=== PATIENT | female | born 1960 | race African-American/Black ===

== ENCOUNTER 2020-08-12 14:43 | Inpatient (IN) | payer MEDICAID ==
[~2020-08-12] VITALS: Ht 167.6 cm; Wt 63.5 kg
--- NOTE | 2020-08-12 15:00 | NUR ---
madi, from care facility, altered and poor oral intake. Patient a/ox1, confused. Breathing even and unlabored, no sob noted, Needs attended, kept comfortable.
[2020-08-12] MEDS ORDERED: CLON0.1T PO (15:13)
[2020-08-12] MEDS ORDERED: METF-440 PO (15:13)
[2020-08-12] MEDS ORDERED: ATOR10TA PO (15:13)
[2020-08-12] MEDS ORDERED: MELA3TAB41 PO (15:13)
[2020-08-12] MEDS ORDERED: CHOL200010 PO (15:13)
[2020-08-12] MEDS ORDERED: ASCO-352 PO (15:13)
[2020-08-12] MEDS ORDERED: OLAN10TA3 PO (15:13)
[2020-08-12] MEDS ORDERED: ASPI-1420 PO (15:13)
[2020-08-12] MEDS ORDERED: PRED10TA PO (15:13)
[2020-08-12] MEDS ORDERED: CARV3.122 PO (15:13)
[2020-08-12] MEDS ORDERED: BENZ1TAB7 PO (15:13)
[2020-08-12] MEDS ORDERED: FLUO20CA42 PO (15:13)
--- NOTE | 2020-08-12 16:08 | NUR ---
patient taken to radiology for ct.
[2020-08-12 16:26] LABS: BASOPHILS % (AUTO) 0.3 % (0.0-2.0); EOSINOPHILS % (AUTO) 0.2 % (0.0-6.0); HEMATOCRIT 41 % (33-45); HEMOGLOBIN 12.5 g/dL (11.5-14.8); LYMPHOCYTES # (AUTO) 1.5 /CMM (0.8-4.8); LYMPHOCYTES % (AUTO) 18.9 % (20.0-44.0); MEAN CORPUSCULAR HGB CONC 31 g/dl (31.0-36.0); MEAN CORPUSCULAR VOLUME 88 fL (82-100); MONOCYTES # (AUTO) 0.5 /CMM (0.1-1.30); NEUTROPHILS % (AUTO) 74.6 % (43.0-81.0); PLATELET COUNT (AUTO) 177 /CMM (150-450); RED BLOOD CELL COUNT(AUTO) 4.64 MIL/uL (4.0-5.2); WHITE BLOOD COUNT (AUTO) 8.1 K/uL (4.3-11.0)
[2020-08-12 16:59] LABS: BILIRUBIN,URINE NEGATIVE (NEGATIVE); BLOOD, URINE NEGATIVE Ery/uL (NEGATIVE); COLOR,URINE YELLOW (YELLOW); LEUKOCYTE ESTERASE ,URINE SMALL (NEGATIVE); NITRITE, URINE NEGATIVE (NEGATIVE); PROTEIN,URINE 100 mg/dl (NEGATIVE); UGLUCOSE NEGATIVE (NEGATIVE); UROBILINOGEN,URINE 0.2 EU/dL (0.2)
[2020-08-12 17:05] LABS: BACTERIA,URINE Few /HPF (None Seen); RBC,URINE 0-2 /HPF (0-2); SQUAMOUS EPITHELIAL CELL,UR 0-2 /HPF (None Seen); WBC,URINE 51-80 /HPF (0-3)
[2020-08-12 17:13] LABS: ALANINE AMINOTRANSFERASE 25 U/L (12-78); ALBUMIN 3.2 g/dL (3.4-5.0); ALKALINE PHOSPHATASE 69 U/L (46-116); ASPARTATE AMINOTRANSFERASE 21 U/L (15-37); BILIRUBIN,DIRECT 0.1 mg/dL (0.0-0.2); BILIRUBIN,TOTAL 0.5 mg/dL (0.2-1.0); CALCIUM, SERUM 10.8 mg/dL (8.5-10.1); CARBON DIOXIDE 28 mmol/L (21-32); CHLORIDE 107 mmol/L (98-107); CREATININE 1.1 mg/dL (0.6-1.3); GLUCOSE 99 mg/dL (74-106); POTASSIUM 4.4 mmol/L (3.5-5.1); SODIUM SERUM 146 mmol/L (136-145); TOTAL PROTEIN, SERUM 7.7 g/dL (6.4-8.2); UREA NITROGEN, BLOOD 25 mg/dL (7-18)
[2020-08-12] MEDS ORDERED: MEROPENEM 1,000 MG in IV NS 0.9% 100 ML IV ONE (18:00)
[2020-08-12] MEDS ORDERED: IV NS 0.9% 1,000 ML IV ONE (18:00)
--- NOTE | 2020-08-12 19:43 | NUR ---
TOOK OVER PT CARE. PT AAOX1. PLACED IN BED 10 ON MONITOR AND PULSE OX. VSS. WATCHING TV. PROVIDED WITH BLANKETS.
--- NOTE | 2020-08-12 20:05 | NUR ---
IMELDAID SWABBED, SENT TO LAB.
--- NOTE | 2020-08-12 20:20 | NUR ---
SPOKE TO MD MARY REGARDING PT BEING HYPERTENSIVE, AWAITING ORDERS.
[2020-08-12] MEDS ORDERED: hydrALAZINE HCL IV 20 MG VIAL IV ONE (20:30)
--- NOTE | 2020-08-12 20:33 | NUR ---
PT PROVIDED WITH FOOD.
--- NOTE | 2020-08-12 21:33 | NUR ---
LAB CALLED REGARDING POSITIVE COVID RESULT.
--- NOTE | 2020-08-12 22:35 | NUR ---
PT RESTING COMFORTABLY, WATCHING TV. VSS.
--- NOTE | 2020-08-13 00:46 | NUR ---
PT ASLEEP IN BED, VSS.
--- NOTE | 2020-08-13 01:44 | NUR ---
PT ASLEEP, VSS. PROVIDED WITH BLANKETS.
--- NOTE | 2020-08-13 02:43 | NUR ---
CALLED AFTER HOUR PHARMACY TO VERIFY THE ADMITTING ORDERS
[2020-08-13] MEDS ORDERED: CEFTRIAXONE 1 G VIAL ONE (03:21)
[2020-08-13] MEDS: CEFTRIAXONE 1 G in IV D5W 50 ML IV SCH (03:25)
[2020-08-13] MEDS: IV D5/ 0.9% NACL 1,000 ML IV PRN ×2 (03:30→16:54)
--- NOTE | 2020-08-13 03:46 | NUR ---
PT AWAKE IN BED, WATCHING TV. VSS.
--- NOTE | 2020-08-13 04:11 | NUR ---
PT ASLEEP, PROVIDED WITH BLANKETS.
--- NOTE | 2020-08-13 05:19 | NUR ---
TELEPHONE COIN BOX COLLECTOR AT BEDSIDE FOR MORNING LABS.
--- NOTE | 2020-08-13 06:19 | NUR ---
PT IN BED, WATCHING TV. VSS.
[2020-08-13 06:20] LABS: BASOPHILS % (AUTO) 0.6 % (0.0-2.0); EOSINOPHILS % (AUTO) 1.5 % (0.0-6.0); HEMATOCRIT 43 % (33-45); HEMOGLOBIN 12.9 g/dL (11.5-14.8); LYMPHOCYTES # (AUTO) 1.8 /CMM (0.8-4.8); LYMPHOCYTES % (AUTO) 27.3 % (20.0-44.0); MEAN CORPUSCULAR HGB CONC 30 g/dl (31.0-36.0); MEAN CORPUSCULAR VOLUME 90 fL (82-100); MONOCYTES # (AUTO) 0.7 /CMM (0.1-1.30); MONOCYTES % (AUTO) 10.9 % (2.0-12.0); NEUTROPHILS % (AUTO) 59.7 % (43.0-81.0); PLATELET COUNT (AUTO) 142 /CMM (150-450); RED BLOOD CELL COUNT(AUTO) 4.75 MIL/uL (4.0-5.2); WHITE BLOOD COUNT (AUTO) 6.8 K/uL (4.3-11.0)
[2020-08-13 06:31] LABS: CALCIUM, SERUM 10.3 mg/dL (8.5-10.1); CREATININE 0.9 mg/dL (0.6-1.3); POTASSIUM 3.9 mmol/L (3.5-5.1)
--- NOTE | 2020-08-13 07:26 | NUR ---
REPORT GIVEN TO AM NURSE GARZA RN FOR AMRITA
[2020-08-13] MEDS: METFORMIN 500 MG TABLET PO SCH ×2 (08:51→18:45)
[2020-08-13] MEDS: CHOLECALCIFEROL 1,000 UNIT TABLET (VIT D3) PO SCH (08:52)
[2020-08-13] MEDS: FLUOXETINE HCL 20 MG CAPSULE PO SCH (08:52)
[2020-08-13] MEDS: OLANZAPINE 10 MG TABLET PO SCH ×2 (08:52→17:00)
[2020-08-13] MEDS: ASPIRIN 81 MG TAB.CHEW PO SCH (08:52)
[2020-08-13] MEDS: CLONIDINE HCL 0.1 MG TABLET PO SCH ×2 (08:52→17:00)
[2020-08-13] MEDS: ASCORBIC ACID 500 MG TABLET PO SCH (08:52)
[2020-08-13] MEDS: BENZTROPINE MESYLATE (1 MG) 1 MG TABLET PO SCH (08:52)
[2020-08-13] MEDS: CARVEDILOL 3.125 MG TABLET PO SCH ×2 (08:52→17:00)
[2020-08-13] MEDS ORDERED: risperiDONE 1 MG TABLET PO SCH (09:00)
[2020-08-13] MEDS ORDERED: CHOLECALCIFEROL (VITAMIN D 3) 400 UNIT TABLET PO SCH (09:00)
--- NOTE | 2020-08-13 13:24 | NUR ---
pericare provided. Patient assisted with feeding.
--- NOTE | 2020-08-13 16:21 | NUR ---
[facility] BED 119-2 RN IS CHRISTOPHER FOR GIVING REPORT.
--- NOTE | 2020-08-13 16:35 | NUR ---
report given to suzanne at [facility]
--- NOTE | 2020-08-13 16:55 | NUR ---
PATIENT TRANSFERRED TO FLOOR VIA ACLS PROTOCOL. NO DISTRESS NOTED.
--- NOTE | 2020-08-13 17:15 | NUR ---
RECEIVED PT FROM ER DEPARTMENT. PT IS AWAKE AND ALERT X 1-2 , WITH EPISODES OF CONFUSION. PT IS COVID POSITIVE. PPE AND ISOLATION PRECAUTION OBSERVED. RESPIRATION IS EVEN AND EASY WITH O2 SAT OF 99%. ADMISSION CARE RENDERED. LEFT WRIST IV 18 G INTACT AND FLUSHED. SKIN IS INTACT WITH NO SKIN OPENING OR REDNESS NOTED. BED KEPT IN LOWEST POSITION FOR SAFETY. WILL ENDORSE TO NEXT SHIFT FOR AMRITA.
--- NOTE | 2020-08-13 18:54 | NUR ---
SALES SUPPORT CONSULTANT CLOSING NOTES PT REMAINS AWAKE WITH CONFUSION. TOLERATING O2 AT 4 LPM VIA NASAL CANNULA SATING >92%, NO PRESENCE OF ACUTE RESPIRATORY DISTRESS. NOT IN ANY ACUTE DISTRESS. TELE MONITOR SHOWS SINUS TACHYCARDIA. ALL NEEDS ATTENDED TO. BED IN LOW LOCKED, SRX2 UP FOR SAFETY. ENDORSED TO NEXT SHIFT FOR AMRITA.
[2020-08-13 20:00] VITALS: BP 147/85
--- NOTE | 2020-08-13 20:30 | NUR ---
RN NOTE RECEIVED PT IN BED AWAKE, PT A/O X 2 WITH CONFUSION.RECEIVED PT ON O2 AT 4 LPM VIA NASAL CANNULA. NO PRESENCE OF ACUTE RESPIRATORY DISTRESS. NOT IN ANY ACUTE DISTRESS. ON TELE MONITOR SR. IV TO LEFT WEIST PATENT INTACT AND FLUSHING WELL. D5NS AT 85 ML/HR. SIDE RAILS UP X 2 CALL LIGHT WITHIN REACH WILL.CONT. TO MONITOR PT.
[2020-08-13] MEDS ORDERED: MISCELLANEOUS MED 1 EA EA PO SCH (22:00)
[2020-08-13] MEDS: ATORVASTATIN 10 MG TABLET PO SCH (22:21)
[2020-08-14] VITALS: BP 180/99
[2020-08-14] MEDS ORDERED: CEFTRIAXONE 1 G VIAL ONE (01:31)
[2020-08-14 04:00] VITALS: BP 149/83
--- NOTE | 2020-08-14 04:20 | NUR ---
RN NOTE CEFTRIAXONE 1 GRAM IV GIVEN AT 0215 SYSTEM DOWN. DOCUMENTED ON PAPER AND FILED IN CHART
[2020-08-14] MEDS: BENZTROPINE MESYLATE (1 MG) 1 MG TABLET PO SCH (09:15)
[2020-08-14] MEDS: OLANZAPINE 10 MG TABLET PO SCH ×2 (09:15→17:59)
[2020-08-14] MEDS: CLONIDINE HCL 0.1 MG TABLET PO SCH ×2 (09:15→17:00)
[2020-08-14] MEDS: CARVEDILOL 3.125 MG TABLET PO SCH ×2 (09:15→17:59)
[2020-08-14] MEDS: ASPIRIN 81 MG TAB.CHEW PO SCH (09:15)
[2020-08-14] MEDS: ASCORBIC ACID 500 MG TABLET PO SCH (09:15)
[2020-08-14] MEDS: CHOLECALCIFEROL 1,000 UNIT TABLET (VIT D3) PO SCH (09:15)
[2020-08-14] MEDS: METFORMIN 500 MG TABLET PO SCH ×2 (09:16→18:03)
[2020-08-14] MEDS: FLUOXETINE HCL 20 MG CAPSULE PO SCH (09:16)
[2020-08-14 11:03] VITALS: BP 192/93
[2020-08-14] MEDS: DEXAMETHASONE 4 MG TABLET PO SCH ×2 (13:37→17:59)
[2020-08-14] MEDS: ENOXAPARIN SODIUM 40 MG/0.4 ML DISP.SYRIN SQ SCH (13:39)
[2020-08-14] MEDS: IV NS 0.9% 1,000 ML IV PRN (13:41)
[2020-08-14 14:54] VITALS: BP 103/58
[2020-08-14 16:44] VITALS: BP 108/54
--- NOTE | 2020-08-14 19:35 | NUR ---
CUSTOMER ASSISTANCE REPRESENTATIVE OPENING NOTES RECEIVED PATIENT IN BED, ALERT AND ORIENTED X 2 CONFUSED. VERBALLY RESPONSIVE AND ABLE TO FOLLOW DIRECTIONS. BREATHING REGULAR AND UNLABORED ON NASAL CANNULA AT 5L/MIN, LATEST SPO2 98%. RIGHT WRIST G18 IV LINE INTACT AND PATENT, INFUSING WELL WITH NO BLEEDING OR S/S OF INFILTRATION NOTED. ON CARDIAC MONITORING WITH NSR AT 78bpm. NO S/S OF PAIN/DISCOMFORT SEEN AT THIS TIME. BED LOW AND LOCKED ON SEMI FOWLERS POSITION. CALL LIGHT IN REACH. ON ISOLATION FOR COVID19, PROPER HAND WASHING AND ISOLATION PRECAUTIONS OBSERVED. WILL CONTINUE TO MONITOR.
--- NOTE | 2020-08-14 19:49 | NUR ---
pATIENT IS STABLE ON OXYGEN 4l VIA NC. iv LINE INTACT AND FLUID RUNNING ORDERED. PATIENT KEPT CLEAN AND DRY. NOTED WITH GOOD APPETITE. COMPLIANT TO MEDICATION. SAFETY MEASURES IN PLACE, CALL LIGHT WITHIN REACH. WILL ENDORSE TO NEXT SHIFT FOR yin
[2020-08-14 20:00] VITALS: BP 149/90
[2020-08-14] MEDS: ATORVASTATIN 10 MG TABLET PO SCH (21:42)
[2020-08-15] VITALS (7 sets, daily range): BP systolic 131–178; BP diastolic 75–95
[2020-08-15] MEDS: CEFTRIAXONE 1 G in IV D5W 50 ML IV SCH (01:38)
[2020-08-15] MEDS: IV NS 0.9% 1,000 ML IV PRN ×2 (01:38→23:21)
[2020-08-15 06:40] LABS: BASOPHILS % (AUTO) 0.2 % (0.0-2.0); HEMATOCRIT 37 % (33-45); HEMOGLOBIN 11.5 g/dL (11.5-14.8); LYMPHOCYTES # (AUTO) 0.9 /CMM (0.8-4.8); LYMPHOCYTES % (AUTO) 13.8 % (20.0-44.0); MEAN CORPUSCULAR HGB CONC 31 g/dl (31.0-36.0); MEAN CORPUSCULAR VOLUME 88 fL (82-100); MONOCYTES # (AUTO) 0.1 /CMM (0.1-1.30); MONOCYTES % (AUTO) 2.2 % (2.0-12.0); NEUTROPHILS # (AUTO) 5.5 /CMM (1.8-8.9); NEUTROPHILS % (AUTO) 83.8 % (43.0-81.0); PLATELET COUNT (AUTO) 158 /CMM (150-450); RED BLOOD CELL COUNT(AUTO) 4.18 MIL/uL (4.0-5.2); WHITE BLOOD COUNT (AUTO) 6.6 K/uL (4.3-11.0)
--- NOTE | 2020-08-15 06:45 | NUR ---
ANALYTICS DIRECTOR CLOSING NOTES PATIENT IN BED, ALERT AND ORIENTED X 2 CONFUSED. AFEBRILE WITH NO S/S OF DISTRESS OBSERVED. RIGHT WRIST G18 IV LINE PATENT AND INFUSING WELL. MAINTAINED ON CARDIAC MONITORING WITH NSR AT 82bpm. NO S/S OF PAIN/DISCOMFORT NOTED AT THIS TIME. BED LOW AND LOCKED ON SEMI FOWLERS POSITION. CALL LIGHT IN REACH. WILL ENDORSE TO MORNING SHIFT FOR AMRITA.
[2020-08-15 07:12] LABS: CREATININE 1.1 mg/dL (0.6-1.3); MAGNESIUM 1.5 mg/dL (1.8-2.4); PHOSPHORUS 3.1 mg/dL (2.5-4.9); POTASSIUM 4.2 mmol/L (3.5-5.1)
--- NOTE | 2020-08-15 08:14 | NUR ---
MANAGER COLLEGE OPEN NOTES PATIENT IS A/O X 2 WITH NO SIGNS OF DISTRESS ON 4L OF NASAL CANNULA SPO2 98-100%. IV R WRIST #22G RUNNING NS AT 75 ML/HR. NO COMPLAIN OF PAIN AT THIS TIME. TELE MONITOR NSR. SAFETY MEASURES ARE APPLIED, BED IS IN LOW POSITION SIDE RAILS UP X 2. CALL LIGHT WITHIN REACH. WILL CONTINUE TO MONITOR.
[2020-08-15] MEDS: ASPIRIN 81 MG TAB.CHEW PO SCH (09:00)
[2020-08-15] MEDS: ASCORBIC ACID 500 MG TABLET PO SCH (09:00)
[2020-08-15] MEDS: CHOLECALCIFEROL 1,000 UNIT TABLET (VIT D3) PO SCH (09:00)
[2020-08-15] MEDS: Magnesium 1GM/D5W 100ML PREMIX 100 ML IV SCH ×4 (10:36→14:25)
[2020-08-15] MEDS: OLANZAPINE 10 MG TABLET PO SCH ×2 (10:37→17:45)
[2020-08-15] MEDS: METFORMIN 500 MG TABLET PO SCH ×2 (10:37→17:45)
[2020-08-15] MEDS: BENZTROPINE MESYLATE (1 MG) 1 MG TABLET PO SCH (10:37)
[2020-08-15] MEDS: CARVEDILOL 3.125 MG TABLET PO SCH ×3 (10:37→18:10)
[2020-08-15] MEDS: CLONIDINE HCL 0.1 MG TABLET PO SCH ×3 (10:37→18:11)
[2020-08-15] MEDS: DEXAMETHASONE 4 MG TABLET PO SCH ×2 (10:38→17:45)
[2020-08-15] MEDS: ENOXAPARIN SODIUM 40 MG/0.4 ML DISP.SYRIN SQ SCH (10:39)
[2020-08-15] MEDS: FLUOXETINE HCL 20 MG CAPSULE PO SCH (10:46)
[2020-08-15] MEDS ORDERED: Magnesium 1GM/D5W 100ML PREMIX 100 ML IV SCH (11:30)
--- NOTE | 2020-08-15 20:06 | NUR ---
RN NOTES PATIENT IS A/O X 2 WITH CONFUSION. BREATHING EVEN AND UNLABORED. NO SOB OR ANY RESPIRATORY DISTRESS. ON O2 4LPM VIA NASAL CANNULA, O2 SAT 98%. IV R WRIST #22G RUNNING NS AT 75 ML/HR, INFUSING WELL. NO COMPLAIN OF PAIN AT THIS TIME. TELE MONITOR NSR. BED LOCKED AND IN LOWEST POSITION. SAFETY MEASURES IMPLEMENTED. CALL LIGHT WITHIN REACH. WILL CONTINUE TO MONITOR.
--- NOTE | 2020-08-15 20:16 | NUR ---
LEAN PROCESS DEPLOYMENT CONSULTANT CLOSED NOTES PATIENT IS A/O X 2 WITH NO SIGNS OF DISTRESS ON 4L OF NASAL CANNULA SPO2 98-100%. IV R WRIST #22G RUNNING NS AT 75 ML/HR. NO COMPLAIN OF PAIN AT THIS TIME. TELE MONITOR NSR. PATIENT KEPT CLEAN AND DRY. ALL NEEDS, CARE, TREATMENT,AND MEDICATIONS WERE ADMINISTERED ANTICIPATED PER ORDER. SAFETY MEASURES ARE APPLIED, BED IS IN LOW POSITION SIDE RAILS UP X 2. CALL LIGHT WITHIN REACH WILL ENDORSE TO THE MIDDLE SCHO[employer] SPANISH TEACHER NURSE.
[2020-08-15] MEDS: ATORVASTATIN 10 MG TABLET PO SCH (21:10)
[2020-08-15] MEDS: AMOX/CLAVULANATE 875 MG TABLET PO SCH (21:10)
[2020-08-16] VITALS (9 sets, daily range): BP systolic 116–192; BP diastolic 70–111
--- NOTE | 2020-08-16 00:12 | NUR ---
PATIENT NOTED WITH BP 192/111. PAGED DR. TJ ROCHA, WITH NEW ORDERS FOR NITRO PASTE 1 INCH Q6HRS PRN FOR BP>170. NOTED AND CARRIED OUT.
[2020-08-16] MEDS: NITROGLYCERIN PACKET 1 GM PACKET TOP PRN (00:30)
--- NOTE | 2020-08-16 06:49 | NUR ---
RN NOTES PATIENT IS A/O X 2 WITH CONFUSION. BREATHING EVEN AND UNLABORED. NO SOB OR ANY RESPIRATORY DISTRESS. ON O2 4LPM VIA NASAL CANNULA, O2 SAT 98%. IV R WRIST #22G RUNNING NS AT 75 ML/HR, INFUSING WELL. DENIES ANY PAIN OR DISCOMFORT. TELE MONITOR NSR 68. NEEDS ATTENDED PROMPTLY. ALL DUE MEDS GIVEN PER MD ORDER. BED LOCKED AND IN LOWEST POSITION. SAFETY MEASURES IMPLEMENTED. CALL LIGHT WITHIN REACH. WILL ENDORSED TO ONCOMING SHIFT.
--- NOTE | 2020-08-16 07:39 | NUR ---
SURVEY CHIEF OPEN NOTES PATIENT IS A/O X 2 WITH NO SIGNS OF DISTRESS ON 4L OF NASAL CANNULA SPO2 98%. IV R WRIST #22G RUNNING NS AT 75 ML/HR. NO COMPLAIN OF PAIN AT THIS TIME. TELE MONITOR NSR. SAFETY MEASURES ARE APPLIED, BED IS IN LOW POSITION SIDE RAILS UP X 2. CALL LIGHT WITHIN REACH. WILL CONTINUE TO MONITOR.
--- NOTE | 2020-08-16 08:35 | NUR ---
WOUND CARE CONSULT: REVIEWED CHART, NURSING DOCUMENTATION AND SPOKE WITH NURSING STAFF. NO SKIN ISSUES AT THIS TIME PER NURSING STAFF. RECOMMENDATIONS MADE FOR SKIN PROTECTION. DISCUSSED WITH NURSING STAFF. MD IN AGREEMENT WITH PLAN OF CARE.
[2020-08-16] MEDS ORDERED: Z GUARD REMEDY 2 OZ OINT TP PRN (09:00)
[2020-08-16 09:08] LABS: BASOPHILS % (AUTO) 0.3 % (0.0-2.0); HEMATOCRIT 40 % (33-45); HEMOGLOBIN 12.4 g/dL (11.5-14.8); LYMPHOCYTES # (AUTO) 1.3 /CMM (0.8-4.8); LYMPHOCYTES % (AUTO) 12.2 % (20.0-44.0); MEAN CORPUSCULAR HGB CONC 31 g/dl (31.0-36.0); MEAN CORPUSCULAR VOLUME 89 fL (82-100); MONOCYTES # (AUTO) 0.6 /CMM (0.1-1.30); MONOCYTES % (AUTO) 5.8 % (2.0-12.0); NEUTROPHILS # (AUTO) 8.9 /CMM (1.8-8.9); NEUTROPHILS % (AUTO) 81.7 % (43.0-81.0); PLATELET COUNT (AUTO) 155 /CMM (150-450); RED BLOOD CELL COUNT(AUTO) 4.56 MIL/uL (4.0-5.2); WHITE BLOOD COUNT (AUTO) 10.9 K/uL (4.3-11.0)
[2020-08-16] MEDS: FLUOXETINE HCL 20 MG CAPSULE PO SCH (09:19)
[2020-08-16] MEDS: CLONIDINE HCL 0.1 MG TABLET PO SCH ×2 (09:19→17:17)
[2020-08-16] MEDS: AMOX/CLAVULANATE 875 MG TABLET PO SCH ×2 (09:19→21:01)
[2020-08-16] MEDS: BENZTROPINE MESYLATE (1 MG) 1 MG TABLET PO SCH (09:19)
[2020-08-16] MEDS: METFORMIN 500 MG TABLET PO SCH ×3 (09:19→17:25)
[2020-08-16] MEDS: CARVEDILOL 3.125 MG TABLET PO SCH ×2 (09:20→17:19)
[2020-08-16] MEDS: CHOLECALCIFEROL 1,000 UNIT TABLET (VIT D3) PO SCH (09:20)
[2020-08-16] MEDS: ASPIRIN 81 MG TAB.CHEW PO SCH (09:20)
[2020-08-16] MEDS: OLANZAPINE 10 MG TABLET PO SCH ×2 (09:20→17:17)
[2020-08-16] MEDS: ASCORBIC ACID 500 MG TABLET PO SCH (09:20)
[2020-08-16] MEDS: MUPIROCIN OINT 2% 22 GM TUBE NS SCH ×2 (09:25→17:17)
[2020-08-16] MEDS: DEXAMETHASONE 4 MG TABLET PO SCH (09:27)
[2020-08-16] MEDS: ENOXAPARIN SODIUM 40 MG/0.4 ML DISP.SYRIN SQ SCH (09:29)
[2020-08-16] MEDS ORDERED: hydrALAZINE HCL 25 MG TABLET PO PRN (09:30)
[2020-08-16] MEDS ORDERED: DEXTROSE 50%-WATER 50 ML DISP.SYRIN IV PRN (09:30)
[2020-08-16] MEDS: NICOTINE PATCH (14MG) 14 MG PATCH.TD24 TD SCH (09:51)
[2020-08-16] MEDS: BLOOD SUGAR DIAGNOSTIC 1 EACH STRIP VI SCH ×4 (09:51→22:26)
[2020-08-16] MEDS: AMLODIPINE BESYLATE 5 MG TABLET PO SCH (09:51)
[2020-08-16] MEDS: INSULIN REGULAR, HUMAN 100 UNIT/ML 3 ML VIAL SQ PRN ×3 (09:54→17:22)
[2020-08-16 10:21] LABS: CALCIUM, SERUM 10.6 mg/dL (8.5-10.1); CREATININE 0.8 mg/dL (0.6-1.3); MAGNESIUM 2.4 mg/dL (1.8-2.4); PHOSPHORUS 2.5 mg/dL (2.5-4.9); POTASSIUM 4.3 mmol/L (3.5-5.1)
[2020-08-16] MEDS: FAMOTIDINE (20 MG) 20 MG TABLET PO SCH ×2 (13:35→21:01)
--- NOTE | 2020-08-16 19:30 | NUR ---
SEED BUYER CLOSED NOTES PATIENT IS A/O X 2 WITH NO SIGNS OF DISTRESS ON 4L OF NASAL CANNULA SPO2 100%. IV R WRIST #22G SL. NO COMPLAIN OF PAIN AT THIS TIME. TELE MONITOR NSR. PATIENT KEPT CLEAN AND DRY. ALL NEEDS, CARE, TREATMENT,AND MEDICATIONS WERE ADMINISTERED ANTICIPATED PER ORDER. SAFETY MEASURES ARE APPLIED, BED IS IN LOW POSITION SIDE RAILS UP X 2. CALL LIGHT WITHIN REACH WILL ENDORSE TO THE FUR POLISHER NURSE.
--- NOTE | 2020-08-16 19:58 | NUR ---
RN NOTES PATIENT IS A/O X 2. NO SOB OR ANY S/S OF DISTRESS. ON O2 4LPM VIA NASAL CANNULA SPO2 100%. IV R WRIST #22G SL. INTACT AND PATENT. TELE MONITOR NSR. DENIES ANY PAIN OR DISCOMFORT. SAFETY MEASURES ARE IMPLEMENTED, BED LOCKED AND IN LOWEST POSITION. SIDE RAILS UP X 2. CALL LIGHT WITHIN REACH. WILL CONTINUE TO MONITOR.
[2020-08-16] MEDS: ATORVASTATIN 10 MG TABLET PO SCH (21:01)
[2020-08-16] MEDS: *INSULIN REGULAR(HUMULIN R)HUM 100 UNIT/ML VIAL SQ PRN (22:26)
[2020-08-17] VITALS: BP 141/76
[2020-08-17 04:00] VITALS: BP 152/80
[2020-08-17 06:17] LABS: BASOPHILS % (AUTO) 0.1 % (0.0-2.0); EOSINOPHILS % (AUTO) 0.3 % (0.0-6.0); HEMATOCRIT 36 % (33-45); HEMOGLOBIN 11.4 g/dL (11.5-14.8); LYMPHOCYTES # (AUTO) 1.6 /CMM (0.8-4.8); LYMPHOCYTES % (AUTO) 18.2 % (20.0-44.0); MEAN CORPUSCULAR HGB CONC 31 g/dl (31.0-36.0); MEAN CORPUSCULAR VOLUME 87 fL (82-100); MONOCYTES # (AUTO) 0.8 /CMM (0.1-1.30); MONOCYTES % (AUTO) 9.1 % (2.0-12.0); NEUTROPHILS # (AUTO) 6.2 /CMM (1.8-8.9); NEUTROPHILS % (AUTO) 72.3 % (43.0-81.0); PLATELET COUNT (AUTO) 151 /CMM (150-450); RED BLOOD CELL COUNT(AUTO) 4.17 MIL/uL (4.0-5.2); WHITE BLOOD COUNT (AUTO) 8.6 K/uL (4.3-11.0)
[2020-08-17 07:11] LABS: MAGNESIUM 1.9 mg/dL (1.8-2.4)
--- NOTE | 2020-08-17 07:48 | NUR ---
RN NOTES PATIENT IS A/OX2. BREATHING EVEN AND UNLABORED. ON O2 4LPM VIA NASAL CANNULA, O2 SAT 98%. DENIES ANY PAIN OR DISCOMFORT. WITH IV RIGHT WRIST #22GSL. INTACT AND PATENT. TELE MONITOR NSR. NO SIGNIFICANT CHANGES DURING SHIFT. ALL NEEDS ATTENDED PROMPTLY. BED LOCKED AND IN LOWEST POSITION. SIDERAILS UP X2. CALL LIGHT WITHIN REACH. ENDORSED TO ONCOMING SHIFT.
[2020-08-17 08:00] VITALS: BP 185/90
--- NOTE | 2020-08-17 08:00 | NUR ---
RN Opening note Received patient in bed, AO x 2 able to responds all stimuli, Pt does no c/o pain or distress. Skin is warm to touch keep clean/dry intact IV site, respiratory even and unlabored with oxygen at 4L via n/c. Kept locked bed with elevated HOB for aspiration precaution and ensure airway and lowest bed foe safety. Call light within reach, will continue to monitor.
[2020-08-17 08:27] LABS: THYROID STIMULATING HORMONE 0.15 uIU/mL (0.358-3.74)
[2020-08-17] MEDS: BLOOD SUGAR DIAGNOSTIC 1 EACH STRIP VI SCH ×4 (09:04→23:31)
[2020-08-17] MEDS: NICOTINE PATCH (14MG) 14 MG PATCH.TD24 TD SCH (09:08)
[2020-08-17] MEDS: CHOLECALCIFEROL 1,000 UNIT TABLET (VIT D3) PO SCH (09:08)
[2020-08-17] MEDS: CLONIDINE HCL 0.1 MG TABLET PO SCH ×2 (09:09→17:32)
[2020-08-17] MEDS: OLANZAPINE 10 MG TABLET PO SCH ×2 (09:09→17:31)
[2020-08-17] MEDS: DEXAMETHASONE 4 MG TABLET PO SCH (09:09)
[2020-08-17] MEDS: AMOX/CLAVULANATE 875 MG TABLET PO SCH ×2 (09:10→22:59)
[2020-08-17] MEDS: CARVEDILOL 3.125 MG TABLET PO SCH ×2 (09:10→17:33)
[2020-08-17] MEDS: FAMOTIDINE (20 MG) 20 MG TABLET PO SCH ×2 (09:10→22:59)
[2020-08-17] MEDS: FLUOXETINE HCL 20 MG CAPSULE PO SCH (09:10)
[2020-08-17] MEDS: ASPIRIN 81 MG TAB.CHEW PO SCH (09:10)
[2020-08-17] MEDS: AMLODIPINE BESYLATE 5 MG TABLET PO SCH ×2 (09:11→17:33)
[2020-08-17] MEDS: BENZTROPINE MESYLATE (1 MG) 1 MG TABLET PO SCH (09:13)
[2020-08-17] MEDS: ASCORBIC ACID 500 MG TABLET PO SCH (09:13)
[2020-08-17] MEDS: ENOXAPARIN SODIUM 40 MG/0.4 ML DISP.SYRIN SQ SCH (09:14)
[2020-08-17] MEDS: MUPIROCIN OINT 2% 22 GM TUBE NS SCH ×2 (09:15→17:32)
[2020-08-17] MEDS: METFORMIN 500 MG TABLET PO SCH ×2 (09:16→17:31)
[2020-08-17] MEDS: LOSARTAN POTASSIUM 50 MG TABLET PO SCH (12:38)
[2020-08-17 16:00] VITALS: BP 117/67
[2020-08-17] MEDS: INSULIN REGULAR, HUMAN 100 UNIT/ML 3 ML VIAL SQ PRN (17:36)
--- NOTE | 2020-08-17 18:00 | NUR ---
RN Closing note Patient in bed finished meal, does no appears pain or discomfort. Respiratory even an d unlabored with oxygen at 4L via n/c and O2sat 99-100%. Skin is warm to touch keep clean/dry, intact IV site. Kept locked bed with elevated HOB for ensure airway and aspiration precaution and lowest bed for safety. Call light within reach will endorse water treatment operator.
--- NOTE | 2020-08-17 22:45 | NUR ---
TELE/RN NOTES RECEIVED REPORT FROM CHARGE NURSE FOR AMRITA. PATIENT IN NO SIGNS OF DISTRESS.
[2020-08-17] MEDS: ATORVASTATIN 10 MG TABLET PO SCH (22:59)
[2020-08-18] VITALS: BP 160/84
[2020-08-18] MEDS: NITROGLYCERIN PACKET 1 GM PACKET TOP PRN (03:49)
[2020-08-18 04:00] VITALS: BP 175/56
--- NOTE | 2020-08-18 06:50 | NUR ---
TELE/RN CLOSING NOTES PATIENT SLEEPING IN BED EASY TO AROUSE. PATIENT IS ALERT AND ORIENTED X 1-2. PATIENT BREATHING IS EVEN AND UNLABORED. NO SIGNS OF SOB OR RESPIRATORY DISTRESS NOTED. PATIENT HAS IV ACCESS ON RIGHT WRIST #22G SL. ALL PATIENT NEED HAVE BEEN MET DURING SHIFT. SAFETY MEASURES ARE IN PLACE, BED IS LOCKED AND PLACED IN THE LOW POSITION, SIDE RAILS UP X 3. CALL LIGHT IS WITHIN REACH. WILL ENDORSE CARE TO DAY SHIFT NURSE.
[2020-08-18] MEDS: BLOOD SUGAR DIAGNOSTIC 1 EACH STRIP VI SCH ×4 (07:30→21:50)
--- NOTE | 2020-08-18 07:30 | NUR ---
PBX TECHNICIAN OPENING NOTES Received patient in bed, AO x 2 able to responds all stimuli, Pt does no c/o pain or distress. Skin is warm to touch keep clean/dry intact IV site, Not in any acute distress. Kept locked bed with elevated HOB for aspiration precaution and ensure airway and lowest bed foe safety. Call light within reach, will continue to monitor.
[2020-08-18 08:00] VITALS: BP 176/89
[2020-08-18] MEDS: NICOTINE PATCH (14MG) 14 MG PATCH.TD24 TD SCH (09:42)
[2020-08-18] MEDS: CHOLECALCIFEROL 1,000 UNIT TABLET (VIT D3) PO SCH (09:42)
[2020-08-18] MEDS: CLONIDINE HCL 0.1 MG TABLET PO SCH ×2 (09:42→17:31)
[2020-08-18] MEDS: FLUOXETINE HCL 20 MG CAPSULE PO SCH (09:42)
[2020-08-18] MEDS: ASPIRIN 81 MG TAB.CHEW PO SCH (09:43)
[2020-08-18] MEDS: ASCORBIC ACID 500 MG TABLET PO SCH (09:43)
[2020-08-18] MEDS: AMOX/CLAVULANATE 875 MG TABLET PO SCH ×2 (09:43→21:50)
[2020-08-18] MEDS: AMLODIPINE BESYLATE 5 MG TABLET PO SCH ×2 (09:43→17:31)
[2020-08-18] MEDS: BENZTROPINE MESYLATE (1 MG) 1 MG TABLET PO SCH (09:43)
[2020-08-18] MEDS: CARVEDILOL 3.125 MG TABLET PO SCH ×2 (09:43→17:31)
[2020-08-18] MEDS: OLANZAPINE 10 MG TABLET PO SCH ×2 (09:44→17:31)
[2020-08-18] MEDS: FAMOTIDINE (20 MG) 20 MG TABLET PO SCH ×2 (09:44→21:50)
[2020-08-18] MEDS: DEXAMETHASONE 4 MG TABLET PO SCH (09:44)
[2020-08-18] MEDS: LOSARTAN POTASSIUM 50 MG TABLET PO SCH (09:44)
[2020-08-18] MEDS: ENOXAPARIN SODIUM 40 MG/0.4 ML DISP.SYRIN SQ SCH (09:45)
[2020-08-18] MEDS: MUPIROCIN OINT 2% 22 GM TUBE NS SCH ×2 (09:47→17:32)
[2020-08-18] MEDS: METFORMIN 500 MG TABLET PO SCH ×2 (09:50→17:31)
[2020-08-18 12:00] VITALS: BP 154/70
[2020-08-18] MEDS: SULFAMETH/TRIMETH 800/160 MG 1 UDTAB TABLET PO SCH ×2 (13:00→21:50)
[2020-08-18 16:00] VITALS: BP 185/90
[2020-08-18] MEDS: *INSULIN REGULAR(HUMULIN R)HUM 100 UNIT/ML VIAL SQ PRN (17:46)
--- NOTE | 2020-08-18 18:20 | NUR ---
PARKING TECHNICIAN CLOSING NOTES PATIENT REMAINS IN BED, EASY TO AROUSE. PATIENT IS ALERT AND ORIENTED X 1-2. PATIENT BREATHING IS EVEN AND UNLABORED. NO SIGNS OF SOB OR RESPIRATORY DISTRESS NOTED. PATIENT HAS IV ACCESS ON RIGHT WRIST #22G SL. ALL PATIENT NEED HAVE BEEN MET DURING SHIFT. SAFETY MEASURES ARE IN PLACE, BED IS LOCKED AND PLACED IN THE LOW POSITION, SIDE RAILS UP X 3. CALL LIGHT IS WITHIN REACH. WILL ENDORSE TO NEXT SHIFT FOR AMRITA.
--- NOTE | 2020-08-18 19:40 | NUR ---
RN OPENING NOTE RECEIVED PT IN BED. A/O X 2, A LITTLE CONFUSED, RESPONDS WELL TO REDIRECTION REORIENTATION. COOPERATIVE. PT IS ON4L VIA NC SATURATING WELL AT 97-100% BREATHING IS EVEN AND UNLABORED. NO S/S OF RESPIRATORY DISTRESS OR SOB NOTED AT THIS TIME. ON TELE MONITORING CURRENTLY PRESENT WITH SINUS JARED HR 58. NORMAL TO PT BASELINE. IV SITE LEAKING, REMOVED WITH CATHETER INTACT, NO S/S OF BLEEDING AT THIS TIME, WILL F/U AND WILL REINSERT. SAFETY MEASURE IN PLACE. PT HAS HOB ELEVATED. SIDE RAILS UP X2. BED LOCKED IN LOWEST POSITION. CALL LIGHT WITHIN REACH WILL CONTINUE TO MONITOR
[2020-08-18 20:00] VITALS: BP 122/55
[2020-08-18] MEDS: ATORVASTATIN 10 MG TABLET PO SCH (21:50)
[2020-08-19] VITALS: BP 140/92
[2020-08-19 04:00] VITALS: BP 152/79
--- NOTE | 2020-08-19 04:02 | NUR ---
UNABLE TO PLACE ANOTHER IV, WITH ANOTHER NURSE UTILIZED VEIN FINDER. CHARGE MADE AWARE. SUPERVISOR PARTIAL DENTURE DEPARTMENT MD MADE AWARE
--- NOTE | 2020-08-19 07:52 | NUR ---
RN CLOSING NOTES NO SIGNIFICANT CHANGES ON MY SHIFT. PT IS NOT IN ANY DISTRESS OR EXPERIENCING SOB. STILL ON 4L OF O2 VIA NC. SATURATION 98% BED BATH TOLERATED. PT WAS COOPERATIVE. PT IS STILL SINUS JARED HR IN 60S, NORMAL TO BASELINE. NO IV, MD AWARE. NO ORDERS AT THIS TIME. SAFETY MEASURES IN PLACE. HOB ELEVATED. SIDE RAILS UP X2. BED LOCKED IN LOWEST POSITION. ALARM ON. ENDORSED TO AM NURSE FOR AMRITA.
[2020-08-19 08:00] VITALS: BP 128/64
--- NOTE | 2020-08-19 08:14 | NUR ---
TELE/RN OPENING NOTES RECEIVED PATIENT ON BED, AWAKE, ALERT AND ORIENTED X 2. PATIENT IN NO APPARENT RESPIRATORY DISTRESS NOTED. NO COMPLAINED OF PAIN AT THIS TIME. ON OXYGEN VIA NASAL CANNULA AT 4 L/MIN TOLERATING WELL. TELE MONITOR READING SINUS JARED 49 BPM. WILL CONTINUE TO MONITOR.
[2020-08-19] MEDS: CARVEDILOL 3.125 MG TABLET PO SCH ×2 (09:00→10:25)
[2020-08-19] MEDS: ASPIRIN 81 MG TAB.CHEW PO SCH (09:33)
[2020-08-19] MEDS: FAMOTIDINE (20 MG) 20 MG TABLET PO SCH (09:33)
[2020-08-19] MEDS: NICOTINE PATCH (14MG) 14 MG PATCH.TD24 TD SCH (09:33)
[2020-08-19] MEDS: SULFAMETH/TRIMETH 800/160 MG 1 UDTAB TABLET PO SCH (09:33)
[2020-08-19] MEDS: OLANZAPINE 10 MG TABLET PO SCH (09:34)
[2020-08-19] MEDS: AMOX/CLAVULANATE 875 MG TABLET PO SCH (09:34)
[2020-08-19] MEDS: ASCORBIC ACID 500 MG TABLET PO SCH (09:34)
[2020-08-19] MEDS: DEXAMETHASONE 4 MG TABLET PO SCH (09:34)
[2020-08-19] MEDS: CHOLECALCIFEROL 1,000 UNIT TABLET (VIT D3) PO SCH (09:34)
[2020-08-19] MEDS: METFORMIN 500 MG TABLET PO SCH (09:37)
[2020-08-19] MEDS: FLUOXETINE HCL 20 MG CAPSULE PO SCH (09:37)
[2020-08-19] MEDS: LOSARTAN POTASSIUM 50 MG TABLET PO SCH (09:37)
[2020-08-19] MEDS: AMLODIPINE BESYLATE 5 MG TABLET PO SCH (09:38)
[2020-08-19] MEDS: ENOXAPARIN SODIUM 40 MG/0.4 ML DISP.SYRIN SQ SCH (09:39)
[2020-08-19] MEDS: BENZTROPINE MESYLATE (1 MG) 1 MG TABLET PO SCH (09:40)
[2020-08-19] MEDS: CLONIDINE HCL 0.1 MG TABLET PO SCH (09:45)
[2020-08-19] MEDS: MUPIROCIN OINT 2% 22 GM TUBE NS SCH (09:56)
[2020-08-19] MEDS: BLOOD SUGAR DIAGNOSTIC 1 EACH STRIP VI SCH ×2 (09:58→12:13)
[2020-08-19 10:04] LABS: ABG BASE EXCESS 8.1 mmol/L; ABG OXYGEN SATURATION 95.7 % (92.0-98.5); ABG PCO2 52.9 mmHg (35.0-45.0); ABG PH 7.426 (7.350-7.450); AaDO2 146.4 mmHg; COHb 0.1 % (0.5-1.5); MetHb 0.3 % (0.0-1.5); O2Hb 95.3 % (94.0-97.0); SITE, ABG Right Radial; VENT MODE, BG Nasal Cannula
[2020-08-19 10:25] VITALS: BP 128/64
[2020-08-19] MEDS: INSULIN REGULAR, HUMAN 100 UNIT/ML 3 ML VIAL SQ PRN (12:05)
--- NOTE | 2020-08-19 18:13 | NUR ---
RN NOTES PATIENT ALERT AND ORIENTED X2. PATIENT IN NO APPARENT RESPIRATORY DISTRESS NOTED. NO SIGN AND SYMPTOM OF PAIN AT THIS TIME. PATIENT LEFT THE HOSPITAL IN MEDICALLY STABLE CONDITION. CAB DRIVER BY 2 EMT VIA AMBULANCE AT 1550.
== END 2020-08-19 15:50 | DRG 463 ==
LOC: ER 14:45 → TRANSITION 20:24 → TELE1 08-13 16:28
PROVIDERS: ADMIT Internal Medicine Nephrology; ATTEND Internal Medicine
DX: N39.0 Urinary tract infection, site not specified (principal); U07.1 COVID-19; G92 Toxic encephalopathy; E86.0 Dehydration; F03.90 Unspecified dementia, unspecified severity, without behavioral disturbance, psychotic disturbance, mood disturbance, and anxiety; E83.52 Hypercalcemia; I10 Essential (primary) hypertension; E78.5 Hyperlipidemia, unspecified; J12.89 Other viral pneumonia; Z22.322 Carrier or suspected carrier of Methicillin resistant Staphylococcus aureus; F32.9 Major depressive disorder, single episode, unspecified; F17.200 Nicotine dependence, unspecified, uncomplicated; B96.20 Unspecified Escherichia coli [E. coli] as the cause of diseases classified elsewhere; Z74.01 Bed confinement status; R13.10 Dysphagia, unspecified; E66.01 Morbid (severe) obesity due to excess calories; F99 Mental disorder, not otherwise specified; Z68.22 Body mass index [BMI] 22.0-22.9, adult; B96.4 Proteus (mirabilis) (morganii) as the cause of diseases classified elsewhere; Z79.84 Long term (current) use of oral hypoglycemic drugs; J20.9 Acute bronchitis, unspecified; E11.9 Type 2 diabetes mellitus without complications
CPT/HCPCS: 36415; 36600; 70450-TC; 71045-TC; 80048-TC; 80076-TC; 81001; 82803-TC; 82962-TC; 83605-TC; 83735-TC; 84100-TC; 84439-TC; 84443-TC; 84484-TC; 85025-TC; 85378-TC; 85730-TC; 87040-TC; 87081-TC; 87086-TC; 87186-TC; 92526; 92611-TC; 94799-TC; 97112-TC; 97116-TC; 97530-TC; G0378; J0360; J0696; J1650; J1815; J2185; J3475; J7030; J7042; J7060; J8540; U0003